=== PATIENT | female | born 1960 | race Caucasian/White ===

== ENCOUNTER 2016-12-31 08:23 | Observation (INO) | payer OTHER ==
[2016-12-31] MEDS ORDERED: NITRO-BID 2% UD PACKETS TOP ONE ×2 (08:31→11:34)
[2016-12-31] MEDS ORDERED: BABY ASPIRIN 81 MG CHEW PO ONE (08:31)
[2016-12-31] MEDS ORDERED: ATARAX 25 MG PO ONE (08:32)
--- NOTE | 2016-12-31 08:39 | ERPHSYRPT ---
- History of Present Illness Time Seen by Provider: 12/31/16 08:25 Historian: patient, family Physician History: CC: chest and left arm pain Hx: 56 y/o patient of Dr Regan with recent episodes of arm heaviness, tightness , and pain associated with malaise and fatigue. She had negative CTA chest yesterday. Today she was having exercise treadmill attended by Dr Pedraza. She complained of some chest pain and then tightness and heaviness in the left arm. She continues to have left arm tightness and heaviness of moderate to severe nature. No hx of heart disease. Was NPO this AM. No abd pain. Not short of breath but did have EKG, cxr, and PFT recently. She was sent from stress test lab to ER for evaluation. Timing/Duration: today Aspirin Treatment Today: 81 mg x 4, provided by ED Allergies/Adverse Reactions: codeine [Codeine] Allergy (Verified 01/06/13 11:12) "feels funny" Home Medications: Synthroid 75 Mcg 75 mcg PO DAILY 01/06/13 [History] Hx Tetanus, Diphtheria Vaccination/Date Given: Yes Hx Influenza Vaccination/Date Given: Yes Hx Pneumococcal Vaccination/Date Given: No - Review of Systems Constitutional: Fatigue, Malaise, No Fever, No Chills Eyes: No Symptoms Ears, Nose, & Throat: No Symptoms Respiratory: No Cough, No Dyspnea Cardiac: Chest Pain, No Edema, No Palpitations, No Syncope Abdominal/Gastrointestinal: No Abdominal Pain, No Nausea, No Vomiting Musculoskeletal: No Back Pain Skin: No Rash Neurological: No Headache All Other Systems: Reviewed and Negative - Past Medical History Pertinent Past Medical History: Yes Neurological History: Migraines ENT History: Cataracts Cardiac History: No Pertinent History Respiratory History: No Pertinent History Endocrine Medical History: Hypothyroidism Musculoskeletal History: No Pertinent History GI Medical History: Gallbladder Disease, Hernia History: No Pertinent History Psycho-Social History: No Pertinent History Female Reproductive Disorders: No Pertinent History - Past Surgical History Past Surgical History: Yes Neuro Surgical History: No Pertinent History Cardiac: No Pertinent History Respiratory: No Pertinent History Gastrointestinal: Cholecystectomy, Hernia Repair Genitourinary: No Pertinent History Musculoskeletal: No Pertinent History Female Surgical History: Section Other Surgical History: left and right cataract removed Lumbar back surgery - Social History Smoking Status: Never smoker Exposure to second hand smoke: No Drug Use: none 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) - Female History Hx Now: No - Physical Exam General Appearance: alert Eye Exam: PERRL/EOMI Ears, Nose, Throat Exam: normal ENT inspection, moist mucous membranes Neck Exam: normal inspection, non-tender, supple Respiratory Exam: normal breath sounds, lungs clear Cardiovascular Exam: regular rate/rhythm, No murmur Gastrointestinal/Abdomen Exam: soft, No tenderness, No distention Extremity Exam: normal inspection, normal range of motion, No calf tenderness, No pedal edema Neurologic Exam: alert, oriented x 3, cooperative, sensation nml, No motor deficits Skin Exam: warm, dry, No rash SpO2 Interpretation: normal SpO2: 97 Oxygen Delivery: Room Air - Course Nursing assessment & vital signs reviewed: Yes EKG Interpreted by Me: RATE (70), Sinus Rhythm, NORMAL AXIS, NORMAL INTERVALS ( QTc 416'), NORMAL QRS, NORMAL ST-T Ordered Tests: Active Orders 24 hr Category Date Time Status Lifeguard STAT Care 12/31/16 08:31 Active EKG-ER Only STAT Care 12/31/16 08:31 Active IV Insertion STAT Care 12/31/16 08:31 Active Pulse Oximetry (ED) STAT Care 12/31/16 08:31 Active CBC W DIFF Stat Lab 12/31/16 08:42 Completed CMP Stat Lab 12/31/16 08:42 Completed LIPID PROFILE Routine Lab 12/31/16 09:00 Received PROTIME WITH INR Stat Lab 12/31/16 08:42 Completed PTT Stat Lab 12/31/16 08:42 Completed TROPONIN Q3H Lab 12/31/16 08:45 Completed TROPONIN Q3H Lab 12/31/16 11:45 Ordered TROPONIN Q3H Lab 12/31/16 14:45 Ordered TROPONIN Q3H Lab 12/31/16 17:45 Ordered TROPONIN Q3H Lab 12/31/16 20:45 Ordered Medication Summary Generic Name Dose Route Start Last Admin Trade Name Freq PRN Reason Stop Dose Admin Sodium Chloride 1,000 mls @ 100 mls/hr 12/31/16 08:45 12/31/16 08:41 Sodium Chloride 0.9% 1000 Ml IV 01/30/17 08:44 100 mls/hr .Q10H SHAMEKA Administration Discontinued Medications Generic Name Dose Route Start Last Admin Trade Name Freq PRN Reason Stop Dose Admin Acetaminophen 650 mg 12/31/16 10:02 12/31/16 10:11 Tylenol 325 Mg PO 12/31/16 10:03 650 mg STAT ONE Administration Acetaminophen Confirm 12/31/16 10:08 Tylenol 325 Mg Administered 12/31/16 10:09 Dose 650 mg .ROUTE .STK-MED ONE Aspirin 324 mg 12/31/16 08:31 12/31/16 08:41 Baby Aspirin 81 Mg Chew PO 12/31/16 08:32 324 mg STAT ONE Administration Aspirin Confirm 12/31/16 08:40 Baby Aspirin 81 Mg Chew Administered 12/31/16 08:41 Dose 324 mg .ROUTE .STK-MED ONE Hydroxyzine HCl 25 mg 12/31/16 08:32 12/31/16 08:42 Atarax 25 Mg PO 12/31/16 08:33 25 mg STAT ONE Administration Hydroxyzine HCl Confirm 12/31/16 08:40 Atarax 25 Mg Administered 12/31/16 08:41 Dose 25 mg .ROUTE .STK-MED ONE Nitroglycerin 1 gm 12/31/16 08:31 12/31/16 08:42 Nitro-Bid 2% Ud Packets TOP 12/31/16 08:32 1 gm STAT ONE Administration Nitroglycerin Confirm 12/31/16 08:40 Nitro-Bid 2% Ud Packets Administered 12/31/16 08:41 Dose 1 gm .ROUTE .STK-MED ONE Ondansetron HCl 4 mg 12/31/16 10:37 12/31/16 10:41 Zofran 4 Mg/2 Ml Vial IV 12/31/16 10:38 4 mg STAT ONE Administration Ondansetron HCl Confirm 12/31/16 10:38 Zofran 4 Mg/2 Ml Vial Administered 12/31/16 10:39 Dose 4 mg .ROUTE .STK-MED ONE Lab/Rad Data: Laboratory Result Diagrams 12/31/16 08:42 12/31/16 08:42 Laboratory Results 12/31/16 12/31/16 12/31/16 Range/Units 08:45 08:42 08:42 WBC (4.0-10.5) K/mm3 RBC (4.1-5.4) M/mm3 Hgb (12.0-16.0) gm/dl Hct (35-47) % MCV (78-100) fl MCH (26-32) pg MCHC (32-36) g/dl RDW (11.5-14.0) % Plt Count (150-450) K/mm3 MPV (6-9.5) fl Gran % (36.0-66.0) % Lymphocytes % (24.0-44.0) % Monocytes % (0.0-12.0) % Eosinophils % (0.00-5.0) % Basophils % (0.0-0.4) % Basophils # (0-0.4) INR 1.00 (0.8-3.0) PTT 31.9 (25.3-37.0) SECONDS Sodium 139 (136-145) mEq/L Potassium 3.4 L (3.5-5.1) mEq/L Chloride 106 (98-107) mEq/L Carbon Dioxide 25.1 (21-32) mEq/L Anion Gap 11.2 (5-15) MEQ/L BUN 19 (9-20) mg/dL Creatinine 0.88 (0.55-1.30) mg/dl Estimated GFR > 60 ML/MIN Glucose 81 (70-110) MG/DL Calcium 8.5 (8.5-10.1) mg/dL Total Bilirubin 0.3 (0.2-1.0) mg/dL AST 16 (15-37) U/L ALT 16 (12-78) U/L Alkaline Phosphatase 93 (46-116) U/L Troponin I < 0.017 (0.000-0.056) ng/ml Serum Total Protein 6.8 (6.4-8.2) gm/dL Albumin 3.3 L (3.4-5.0) g/dL 12/31/16 Range/Units 08:42 WBC 5.3 (4.0-10.5) K/mm3 RBC 4.15 (4.1-5.4) M/mm3 Hgb 12.3 (12.0-16.0) gm/dl Hct 39.8 (35-47) % MCV 95.9 (78-100) fl MCH 29.6 (26-32) pg MCHC 30.9 L (32-36) g/dl RDW 14.1 H (11.5-14.0) % Plt Count 281 (150-450) K/mm3 MPV 9.6 H (6-9.5) fl Gran % 49.6 (36.0-66.0) % Lymphocytes % 40.6 (24.0-44.0) % Monocytes % 8.1 (0.0-12.0) % Eosinophils % 1.1 (0.00-5.0) % Basophils % 0.6 (0.0-0.4) % Basophils # 0.03 (0-0.4) INR (0.8-3.0) PTT (25.3-37.0) SECONDS Sodium (136-145) mEq/L Potassium (3.5-5.1) mEq/L Chloride (98-107) mEq/L Carbon Dioxide (21-32) mEq/L Anion Gap (5-15) MEQ/L BUN (9-20) mg/dL Creatinine (0.55-1.30) mg/dl Estimated GFR ML/MIN Glucose (70-110) MG/DL Calcium (8.5-10.1) mg/dL Total Bilirubin (0.2-1.0) mg/dL AST (15-37) U/L ALT (12-78) U/L Alkaline Phosphatase (46-116) U/L Troponin I (0.000-0.056) ng/ml Serum Total Protein (6.4-8.2) gm/dL Albumin (3.4-5.0) g/dL - Progress Progress Note: 12/31/16 10:15 Chest and arm pain improved after NTG paste. She completed nuclear imaging. Discussed with Dr Lemon who advised normal EF 66%, no sign of reversible ischemia. Spoke to Dr Pedraza who advised consult [facility] cardiology. 12/31/16 11:[address] Arredondo who advised can have rule out, asa, lipids, NTG Rx and office follow up. Spoke to Dr Regan who will place in tele observation for serial troponins. Discussed with : Jass Will see patient in: hospital (observation) Counseled pt/family regarding: lab results, diagnosis, need for follow-up, rad results - Departure Time of Disposition: 11:21 Departure Disposition: Observation Clinical Impression: Chest pain, rule out acute myocardial infarction Condition: Fair Critical Care Time: No Referrals: MARTY REGAN MD [Primary Care Provider] -
[2016-12-31] MEDS ORDERED: BABY ASPIRIN 81 MG CHEW ONE (08:40)
[2016-12-31] MEDS ORDERED: ATARAX 25 MG ONE (08:40)
[2016-12-31] MEDS ORDERED: NITRO-BID 2% UD PACKETS ONE ×2 (08:40→11:26)
[2016-12-31] MEDS: Sodium Chloride 0.9% 1000 ML 1,000 ML IV SCH ×3 (08:41→22:16)
[2016-12-31 08:46] LABS: BASOPHIL % 0.6 % (0.0-0.4); Eosinophil % 1.1 % (0.00-5.0); Granulocytes % 49.6 % (36.0-66.0); Lymphocytes % 40.6 % (24.0-44.0); Mean Cell Volume 95.9 fl (78-100); Mean Corpuscular Hemoglobin 29.6 pg (26-32); Mean Platelet Volume 9.6 fl (6-9.5); Monocytes % 8.1 % (0.0-12.0); Platelet Count 281 K/mm3 (150-450); Red Blood Count 4.15 M/mm3 (4.1-5.4); Red Cell Distribution Width 14.1 % (11.5-14.0); White Blood Count 5.3 K/mm3 (4.0-10.5)
[2016-12-31 08:57] LABS: PROTIME 11.2 SECONDS (9.95-12.35)
[2016-12-31 08:59] LABS: PTT 31.9 SECONDS (25.3-37.0)
[2016-12-31 09:06] LABS: ALBUMIN 3.3 g/dL (3.4-5.0); ALKALINE PHOSPHATASE 93 U/L (46-116); ANION GAP 11.2 MEQ/L (5-15); BILIRUBIN,TOTAL 0.3 mg/dL (0.2-1.0); BLOOD UREA NITROGEN 19 mg/dL (9-20); CHLORIDE 106 mEq/L (98-107); Carbon Dioxide 25.1 mEq/L (21-32); Glucose 81 MG/DL (70-110); Potassium 3.4 mEq/L (3.5-5.1); SGOT/AST 16 U/L (15-37); SGPT/ALT 16 U/L (12-78); SODIUM 139 mEq/L (136-145); Total Protein 6.8 gm/dL (6.4-8.2)
[2016-12-31] MEDS ORDERED: TYLENOL 325 MG PO ONE (10:02)
[2016-12-31] MEDS ORDERED: TYLENOL 325 MG ONE (10:08)
[2016-12-31] MEDS ORDERED: Zofran 4 MG/2 ML VIAL IV ONE (10:37)
[2016-12-31] MEDS ORDERED: Zofran 4 MG/2 ML VIAL ONE (10:38)
[2016-12-31] MEDS ORDERED: MILK OF MAGNESIA 30 ML PO PRN (12:03)
[2016-12-31] MEDS ORDERED: Senokot-S Tablet PO PRN (12:03)
[2016-12-31] MEDS ORDERED: MAALOX ES 30 ML UNIT DOSE PO PRN (12:03)
[2016-12-31] MEDS ORDERED: TYLENOL 325 MG PO PRN (12:03)
--- NOTE | 2016-12-31 12:57 | PCM.HP ---
History of Present Illness - Chief Complaint Chief Complaint: Chest Pain r/o AK History of Present Illness: is a 56 year old female who has been being worked up for exertional dyspnea. She has had symptoms for the last month with extreme dyspnea with exertion, this is a new complaint. She has had a negative CTA chest and normal PFT. this morning she had a treadmill cardiolyte stress test and developed pain in the left arm, heaviness and tightness in her chest so was brought to ER. nuclear imaging was read as negative, there was concern for some possible EKG changes during testing. she has no chest pain at this time, has nitro paste that has resolved the pain but causing headache. - Review of Systems Constitutional: No Fever, No Chills Respiratory: No Cough, No Short Of Breath Cardiac: Chest Pain Abdominal/Gastrointestinal: No Abdominal Pain, No Nausea, No Vomiting, No Diarrhea Skin: No Rash Medications & Allergies Home Medications: Home Medication List Calcium Carbonate [Calcium] 600 mg PO DAILY 12/31/16 [History Confirmed 12/31/16 ] Escitalopram Oxalate [Lexapro] 20 mg PO DAILY 12/31/16 [History Confirmed ] Levothyroxine Sodium 75 Mcg [Synthroid 75 Mcg] 75 mcg PO DAILY 12/31/16 [ History Confirmed 12/31/16] Allergies/Adverse Reactions: Allergies Allergy/AdvReac Type Severity Reaction Status Date / Time codeine [Codeine] Allergy "feels Verified 01/06/13 11:12 funny" - Past Medical History Past Medical History: Yes Neurological History: Migraines ENT History: Cataracts Cardiac History: No Pertinent History Respiratory History: No Pertinent History Endocrine Medical History: Hypothyroidism Musculoskelatal History: No Pertinent History GI Medical History: Gallbladder Disease, Hernia History: No Pertinent History Pyscho-Social History: No Pertinent History Reproductive Disorders: No Pertinent History - Female History Are you now?: No - Past Surgical History Past Surgical History: Yes Neuro Surgical History: No Pertinent History Cardiac History: No Pertinent History Respiratory Surgery: No Pertinent History GI Surgical History: Cholecystectomy, Hernia Repair Genitourinary Surgical Hx: No Pertinent History Musculskeletal Surgical Hx: No Pertinent History Female Surgical History: Section Other Surgical History: left and right cataract removed Lumbar back surgery - Social History Smoking Status: Never smoker Exposure to second hand smoke: No Alcohol: None Drug Use: none - Physical Exam Vital Signs: Vital Signs - 24 hr Temp Pulse Resp BP Pulse Ox 12/31/16 12:16 97.5 F 66 17 107/65 97 12/31/16 11:36 71 16 112/70 97 12/31/16 11:21 97 12/31/16 10:42 88 22 147/78 97 12/31/16 09:42 71 16 108/73 98 12/31/16 08:50 74 16 127/74 95 12/31/16 08:36 97 12/31/16 08:25 97.5 F 81 16 119/61 97 General Appearance: no apparent distress, alert Neurologic Exam: alert, oriented x 3, cooperative, normal mood/affect, nml cerebellar function, nml station & gait, sensation nml, No motor deficits Eye Exam: PERRL/EOMI, eyes nml inspection Respiratory Exam: normal breath sounds, lungs clear, No respiratory distress Cardiovascular Exam: regular rate/rhythm, normal heart sounds, normal peripheral pulses Gastrointestinal/Abdomen Exam: soft, normal bowel sounds, No tenderness, No mass Extremity Exam: normal inspection, normal range of motion, pelvis stable Skin Exam: normal color, warm, dry, No rash Assessment/Plan (1) Chest pain, rule out acute myocardial infarction Current Visit: Yes Status: Acute Assessment & Plan: will continue to r/o AK, treat pain and headache with prn fentanyl. will remove nitro paste when 12 hour troponin done if negative. will need cardiology referral after release, recommend Dr Cardona Code(s): R07.9 - CHEST PAIN, UNSPECIFIED
[2016-12-31] MEDS: SYNTHROID 75 MCG PO SCH (13:58)
[2016-12-31] MEDS: NITRO-BID 2% UD PACKETS TOP SCH ×2 (13:58→22:00)
[2016-12-31] MEDS: Lexapro 10 MG PO SCH (13:59)
[2016-12-31] MEDS: SUBLIMAZE 100 MCG/2 ML IV PRN ×2 (13:59→18:16)
[2016-12-31] MEDS: Zofran 4 MG/2 ML VIAL IV PRN ×2 (16:58→21:22)
[2016-12-31] MEDS: Pepcid 20 MG VIAL IV SCH (21:22)
[2016-12-31] MEDS ORDERED: Phenergan 25 MG INJ IV PRN (22:25)
[2017-01-01] MEDS: NITRO-BID 2% UD PACKETS TOP SCH (05:00)
[2017-01-01 05:49] LABS: BASOPHIL % 0.5 % (0.0-0.4); Eosinophil % 1.2 % (0.00-5.0); Granulocytes % 71.5 % (36.0-66.0); Lymphocytes % 18.8 % (24.0-44.0); Mean Cell Volume 97.9 fl (78-100); Mean Corpuscular Hemoglobin 29.7 pg (26-32); Mean Platelet Volume 9.5 fl (6-9.5); Platelet Count 247 K/mm3 (150-450); Red Blood Count 3.87 M/mm3 (4.1-5.4); Red Cell Distribution Width 13.9 % (11.5-14.0); White Blood Count 6.6 K/mm3 (4.0-10.5)
[2017-01-01 06:04] LABS: ANION GAP 9.9 MEQ/L (5-15); BLOOD UREA NITROGEN 7 mg/dL (9-20); CHLORIDE 110 mEq/L (98-107); Carbon Dioxide 25.7 mEq/L (21-32); Glucose 81 MG/DL (70-110); MAGNESIUM 1.9 mg/dL (1.8-2.4); Potassium 3.5 mEq/L (3.5-5.1); SODIUM 142 mEq/L (136-145)
[2017-01-01 06:07] LABS: TROPONIN < 0.017 ng/ml (0.000-0.056)
[2017-01-01] MEDS: Lexapro 10 MG PO SCH (08:27)
[2017-01-01] MEDS: SYNTHROID 75 MCG PO SCH (08:27)
[2017-01-01] MEDS: Sodium Chloride 0.9% 1000 ML 1,000 ML IV SCH (08:27)
[2017-01-01] MEDS: Pepcid 20 MG VIAL IV SCH (08:28)
[2017-01-01] MEDS ORDERED: PNEUMOVAX 23 IM ONE (10:00)
[2017-01-01] MEDS ORDERED: Ecotrin 325 MG PO SCH (10:00)
[2017-01-01] MEDS ORDERED: NON-FORMULARY ITEM (Escitalopram Oxalate [Lexapro] 20 MG) PO SCH (10:00)
[2017-01-01 11:10] VITALS: BP 126/63; PULSE 73; O2SAT 98
--- NOTE | 2017-01-01 11:47 | PCM.DS ---
Discharge Summary Date of Admission: 12/31/16 11:55 Admitting Physician: MARTY REGAN Primary Care Provider: MARTY REGAN Allergies Allergies codeine [Codeine] Allergy (Verified 01/06/13 11:12) "feels funny" Hospital Summary - Hospital Course Hospital Course: Pt admitted through ER with arm pain to r/o KS yesterday. She has 1 mo hx DYER, seeing Dr. Regan, and was scheduled for treadmill cardiolite yesterday. During the test some ST changes were noted and she was markedly SOB. After the test she c/o L arm pain. She is feeling well this morning. Her pain resolved with nitro paste and she denies any pain in the arm now after being off the nitro paste all night. Some small ROA. Robby po. Troponins neg x 5. she will be set up with Dr. Cardona next week; off work until she sees him. - Vitals & Intake/Output Vital Signs: Vital Signs Temperature 97.9 F 01/01/17 11:09 Pulse Rate 73 01/01/17 11:09 Respiratory Rate 18 01/01/17 11:09 Blood Pressure 126/63 01/01/17 11:09 O2 Sat by Pulse Oximetry 98 01/01/17 11:09 Intake & Output: Intake & Output 12/29/16 12/30/16 12/31/16 01/01/17 11:59 11:59 11:59 11:59 Intake Total 2440 Output Total 600 Balance 1840 Weight 72.212 kg - Lab Result Diagrams: 01/01/17 05:30 01/01/17 05:30 Lab Results-Last 24 Hrs: Lab Results-Last 24 Hours 12/31/16 12/31/16 12/31/16 Range/Units 15:00 18:01 21:04 WBC (4.0-10.5) K/mm3 RBC (4.1-5.4) M/mm3 Hgb (12.0-16.0) gm/dl Hct (35-47) % MCV (78-100) fl MCH (26-32) pg MCHC (32-36) g/dl RDW (11.5-14.0) % Plt Count (150-450) K/mm3 MPV (6-9.5) fl Gran % (36.0-66.0) % Lymphocytes % (24.0-44.0) % Monocytes % (0.0-12.0) % Eosinophils % (0.00-5.0) % Basophils % (0.0-0.4) % Basophils # (0-0.4) Sodium (136-145) mEq/L Potassium (3.5-5.1) mEq/L Chloride (98-107) mEq/L Carbon Dioxide (21-32) mEq/L Anion Gap (5-15) MEQ/L BUN (9-20) mg/dL Creatinine (0.55-1.30) mg/dl Estimated GFR ML/MIN Glucose (70-110) MG/DL Calcium (8.5-10.1) mg/dL Magnesium (1.8-2.4) mg/dL Troponin I < 0.017 < 0.017 < 0.017 (0.000-0.056) ng/ml 01/01/17 01/01/17 Range/Units 05:30 05:30 WBC 6.6 (4.0-10.5) K/mm3 RBC 3.87 L (4.1-5.4) M/mm3 Hgb 11.5 L (12.0-16.0) gm/dl Hct 37.9 (35-47) % MCV 97.9 (78-100) fl MCH 29.7 (26-32) pg MCHC 30.3 L (32-36) g/dl RDW 13.9 (11.5-14.0) % Plt Count 247 (150-450) K/mm3 MPV 9.5 (6-9.5) fl Gran % 71.5 H (36.0-66.0) % Lymphocytes % 18.8 L (24.0-44.0) % Monocytes % 8.0 (0.0-12.0) % Eosinophils % 1.2 (0.00-5.0) % Basophils % 0.5 (0.0-0.4) % Basophils # 0.03 (0-0.4) Sodium 142 (136-145) mEq/L Potassium 3.5 (3.5-5.1) mEq/L Chloride 110 H (98-107) mEq/L Carbon Dioxide 25.7 (21-32) mEq/L Anion Gap 9.9 (5-15) MEQ/L BUN 7 L (9-20) mg/dL Creatinine 0.68 (0.55-1.30) mg/dl Estimated GFR > 60 ML/MIN Glucose 81 (70-110) MG/DL Calcium 7.6 L (8.5-10.1) mg/dL Magnesium 1.9 (1.8-2.4) mg/dL Troponin I < 0.017 (0.000-0.056) ng/ml - Procedures and Test Procedures and Tests throughout Hospitalization: Therapy Orders & Screens 12/31/16 19:31 EKG ONCE Comment: Diagnosis: Chest Pain r/o KS 01/01/17 05:00 EKG ONCE Comment: Diagnosis: Chest Pain r/o KS 01/02/17 05:00 EKG ONCE Comment: Diagnosis: Chest Pain r/o KS 01/03/17 05:00 EKG ONCE Comment: Diagnosis: Chest Pain r/o KS Discharge Exam General Appearance: no apparent distress Neurologic Exam: alert, oriented x 3, cooperative Skin Exam: normal color, warm, dry Eye Exam: eyes nml inspection Respiratory Exam: normal breath sounds, lungs clear, No rhonchi, No wheezing, No stridor Cardiovascular Exam: regular rate/rhythm, normal heart sounds, No murmur Extremity Exam: normal inspection, No pedal edema, No swelling Back Exam: normal inspection Final Diagnosis/Problem List - Final Discharge Diagnosis/Problem (1) Chest pain, rule out acute myocardial infarction Current Visit: Yes Status: Acute Assessment & Plan: KS ruled out. However, concern is for unstable angina. Discussed with pt any chest pain, discomfort, pressure, arm pain, neck pain etc and she is to go immediately to the ER. Follow up with Dr. Cardona next week; I will call him tuesday. Off work until sees cardiology. (2) DYER (dyspnea on exertion) Current Visit: Yes Status: Acute Assessment & Plan: CTA and PFT neg outpatient. - Discharge Disposition: Home, Self-Care Condition: Good Prescriptions: Continue Escitalopram Oxalate [Lexapro] 20 mg PO DAILY Levothyroxine Sodium 75 Mcg [Synthroid 75 Mcg] 75 mcg PO DAILY Calcium Carbonate [Calcium] 600 mg PO DAILY Follow up with: MARTY REGAN MD [Primary Care Provider] -
== END 2017-01-01 13:20 | disposition home or self-care (01) ==
LOC: ED 08:23 → MED SURG 11:55
PROVIDERS: ADMIT Family Medicine; ATTEND Family Medicine
DX: R07.89 Other chest pain (principal); R06.09 Other forms of dyspnea; Z79.899 Other long term (current) drug therapy
CPT/HCPCS: 36415; 80048; 80053; 80061; 83721; 83735; 84484; 85025; 85610; 85730; 90732; 93005; 93041; 93268; 96360; 96361; 96374; 96375; 99285; G0378; J2405; J2550; J3010; A9270-GY

== ENCOUNTER 2017-12-22 07:16 | Day surgery (SDC) | payer OTHER ==
[~2017-12-22 07:16] MED LIST: Lactated Ringers 1,000 ML IV ONE; XYLOCAINE 1% HCL 20 ML MDV ONE
[2017-12-22] MEDS ORDERED: DEMEROL 50 MG SDV IV ONE (07:17)
[2017-12-22] MEDS ORDERED: VERSED 5 MG/5 ML IV ONE (07:17)
[2017-12-22] MEDS ORDERED: Lactated Ringers 1,000 ML IV SCH (08:00)
[2017-12-22] MEDS ORDERED: Lactated Ringers 0 ML IV ONE (08:01)
--- NOTE | 2017-12-22 08:34 | OP ---
SURGERY DATE/TIME: 12/22/2017929 PREOPERATIVE DIAGNOSIS: Three lesions on the back. POSTOPERATIVE DIAGNOSIS: Three lesions on the back. PROCEDURE: Excision of 1.5 cm sebaceous cyst with closure superior. Middle 1 cm sebaceous cyst with closure. Bottom 0.5 cm capillary hemangioma excision and closure. SURGEON: Santana Andrade M.D. ANESTHESIA: Local IV sedation, 15 minutes monitored. COMPLICATIONS: None. CONDITION: Stable. INDICATION: A patient requiring these areas to be removed. DESCRIPTION OF PROCEDURE: She was taken to surgery. Left lateral decubitus position. IV sedation titrated. Oximetry kept over 90%. Satisfaction level was excellent. 1% lidocaine infiltrated. Elliptical excision of three areas 1.5 cm, 1 cm and 0.5 cm. They were all closed with 4-0 Prolene. Sterile ointment applied. Sterile dressing applied. The patient tolerated the procedure satisfactory.
--- NOTE | 2017-12-22 08:36 | HP ---
DATE OF SURGERY: 12/22/2017 ADMISSION DIAGNOSIS: Two skin lesions on the back. ANTICIPATED PROCEDURE: Excision. PAST MEDICAL HISTORY: ALLERGIES: CODEINE. MEDICATIONS: Synthroid, Lexapro. PAST SURGICAL HISTORY: section, thyroid radiation, gallbladder. SOCIAL HISTORY: Negative. FAMILY HISTORY: Negative. PHYSICAL EXAMINATION: VITAL SIGNS: Normal. CHEST: Clear. COR: Regular. IMPRESSION: Two lesions on the back. PLAN: Excision.
[2017-12-22 11:50] VITALS: BP 109/66; PULSE 77; O2SAT 97
== END 2017-12-22 11:55 | disposition home or self-care (01) ==
LOC: SDC 07:16
PROVIDERS: ATTEND Surgery
PROC: 0HB6XZZ Excision of Back Skin, External Approach (ICD-10-PCS; principal; 2017-12-22)
PROC: 0HB6XZZ Excision of Back Skin, External Approach (ICD-10-PCS; 2017-12-22)
DX: L72.3 Sebaceous cyst (principal); D18.01 Hemangioma of skin and subcutaneous tissue
CPT/HCPCS: 94250; J2175; J2250

== ENCOUNTER 2018-07-12 09:16 | Emergency (ER) | payer OTHER ==
[2018-07-12] MEDS ORDERED: Marcaine 0.5% SDV 10 ML ONE (09:21)
[2018-07-12] MEDS ORDERED: Marcaine 0.5% SDV 10 ML IJ ONE (09:23)
[2018-07-12] MEDS ORDERED: BACIGUENT PACKET TP ONE (09:23)
[2018-07-12 09:27] VITALS: O2SAT 98
[2018-07-12] MEDS ORDERED: BACIGUENT PACKET ONE (09:30)
--- NOTE | 2018-07-12 09:30 | ERPHSYRPT ---
- History of Present Illness Time Seen by Provider: 07/12/18 09:22 Source: patient Exam Limitations: no limitations Physician History: patient accidently lacerated her right index finger at work today on a food can lid; no numbness; no weakness; no loss of strength; slight bleeding; local discomfort only; no prior hx; no other complaints; right handed; otherwise healthy Occurred: just prior to arrival, this morning Method of Injury: incised Quality: sharpness Severity of Pain-Max: mild Severity of Pain-Current: none Extremities Pain Location: 2nd finger: right Modifying Factors: Improves With: nothing Associated Symptoms: none Allergies/Adverse Reactions: codeine [Codeine] Allergy (Verified 07/12/18 09:27) "feels funny" Home Medications: Calcium Carbonate [Calcium] 600 mg PO DAILY 12/31/16 [History] Escitalopram Oxalate [Lexapro] 20 mg PO DAILY 12/31/16 [History] Levothyroxine Sodium 75 Mcg [Synthroid 75 Mcg] 75 mcg PO DAILY 12/31/16 [ History] Aspirin/Acetaminophen/Caffeine [Excedrin Migraine Caplet] 1 each PO DAILY [History] Hx Tetanus, Diphtheria Vaccination/Date Given: Yes Hx Influenza Vaccination/Date Given: Yes Hx Pneumococcal Vaccination/Date Given: No - Review of Systems Constitutional: No Symptoms Eyes: No Symptoms Ears, Nose, & Throat: No Symptoms Respiratory: No Cough, No Dyspnea, No Wheezing Cardiac: No Chest Pain, No Palpitations, No Syncope Abdominal/Gastrointestinal: No Abdominal Pain, No Nausea, No Vomiting, No Diarrhea Genitourinary Symptoms: No Symptoms Musculoskeletal: Injury (right ndex finger lac), No Back Pain, No Fall, No Joint Pain Skin: Other (laceration right index finger) Neurological: No Symptoms Psychological: No Symptoms - Past Medical History Pertinent Past Medical History: Yes Neurological History: Migraines ENT History: Cataracts Cardiac History: No Pertinent History Respiratory History: Sleep Apnea Endocrine Medical History: Hypothyroidism Musculoskeletal History: No Pertinent History GI Medical History: Gallbladder Disease, Hernia History: No Pertinent History Psycho-Social History: Depression Female Reproductive Disorders: No Pertinent History Other Medical History: thyroid radiation - Past Surgical History Past Surgical History: Yes Neuro Surgical History: No Pertinent History Cardiac: No Pertinent History Respiratory: No Pertinent History Gastrointestinal: Cholecystectomy, Hernia Repair Genitourinary: No Pertinent History Musculoskeletal: No Pertinent History Female Surgical History: Section Other Surgical History: left and right cataract removed. Lumbar back surgery. 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) Significant Family History: no pertinent family hx - Female History Hx Now: No - Nursing Vital Signs Nursing Vital Signs: Initial Vital Signs Temperature 97.7 F 07/12/18 09:20 Pulse Rate 78 07/12/18 09:20 Respiratory Rate 20 07/12/18 09:20 Blood Pressure 155/99 07/12/18 09:20 O2 Sat by Pulse Oximetry 98 07/12/18 09:20 Pain Scale Pain Intensity 0 - Physical Exam General Appearance: mild distress, alert, anxiety, other Eyes, Ears, Nose, Throat Exam: normal ENT inspection, pharynx normal, moist mucous membranes Neck Exam: normal inspection, non-tender, supple Cardiovascular/Respiratory Exam: chest non-tender, normal breath sounds, regular rate/rhythm, no JVD, no M/R/G Abdominal Exam: non-tender, soft, no organomegaly Shoulder Exam: normal inspection, non-tender, no evidence of injury, normal ROM Elbow/Forearm Exam: normal inspection, non-tender, no evidence of injury, normal ROM Wrist Exam: normal inspection, non-tender, no evidence of injury, normal ROM Hand Exam: non-tender, normal ROM, laceration (1 cm dorsum right index finger; proximal phalanx; slight bleeding; Good ROM and strength; good two point discrimination), soft tissue tenderness, No bone tenderness, No ecchymosis, No infection, No nail injury Neuro/Tendon Exam: normal sensation, normal motor functions, normal tendon functions, responds to pain, no evidence tendon injury Mental Status Exam: alert, oriented x 3, cooperative, other (anxious) Skin Exam: normal color, warm, dry, laceration (dorsum proximal right index finger- 1 cm), No rash, No petechiae Procedures - Laceration/Wound Repair Right Proximal Dorsal Finger Wound Location: Right, hand Wound Length (cm): 1.0 (index finger) Wound's Depth, Shape: superficial, linear, into subcut Wound Explored: clean Irrigated: Yes Hibiclens Prep: Yes Anesthesia: local, marcaine 0.5 Volume Anesthetic (ccs): 3 Wound Repaired With: sutures Suture Size/Type: 5-0 Number of Sutures: 3 Layer Closure?: No Sterile Dressing Applied?: Yes Splint Applied?: No Sling Applied?: No - Course Nursing assessment & vital signs reviewed: Yes Ordered Tests: Active Orders 24 hr Category Date Time Status Prepare for Sutures STAT Care 07/12/18 09:23 Active Re-Check Vital Signs STAT Care 07/12/18 09:23 Active Sutures STAT Care 07/12/18 09:23 Active Wound Care STAT Care 07/12/18 09:23 Active Medication Summary Discontinued Medications Generic Name Dose Route Start Last Admin Trade Name Cira PRN Reason Stop Dose Admin Bacitracin Zinc 0.9 gm 07/12/18 09:23 07/12/18 09:31 Baciguent Packet TP 07/12/18 09:24 1 gm STAT ONE Administration Bacitracin Zinc Confirm 07/12/18 09:30 Baciguent Packet Administered 07/12/18 09:31 Dose 1 gm .ROUTE .STK-MED ONE Bupivacaine HCl Confirm 07/12/18 09:21 Marcaine 0.5% Sdv 10 Ml Administered 07/12/18 09:22 Dose 10 ml .ROUTE .STK-MED ONE Bupivacaine HCl 5 ml 07/12/18 09:23 Marcaine 0.5% Sdv 10 Ml IJ 07/12/18 09:24 STAT ONE Diphtheria/Tetanus/Acell Pertussis Confirm 07/12/18 09:34 Adacel Vial Administered 07/12/18 09:35 Dose 0.5 ml IM .STK-MED ONE - Progress Progress: improved Progress Note: 07/12/18 09:45 patient tolerated well; instructions given Counseled pt/family regarding: diagnosis, need for follow-up - Departure Time of Disposition: 09:45 Departure Disposition: Home Clinical Impression: 1.0 cm laceration dorsal proximal , right index finger Condition: Stable Critical Care Time: No Referrals: MARTY HERNANDES MD [Primary Care Provider] - Instructions: Wound Care (DC), Laceration Repair With Stitches (DC) Additional Instructions: suture removal in 10 days;Keep clean and dry; bacitracin daily; Tylenol when necessary; Follow-up with family doctor as directed. Call for appointment. Return if any problems. If you smoke please stop. Call or follow up with your family doctor for assistance if you need it to stop. Please wear your seatbelt when driving. Have a nice day. Thank you for allowing us to participate in your care today. :o) Dr Alfredo Mast
[2018-07-12] MEDS ORDERED: Adacel Vial IM ONE (09:34)
[2018-07-12 10:04] VITALS: BP 141/88; PULSE 79
== END 2018-07-12 10:04 | disposition home or self-care (01) ==
LOC: ED 09:16
PROC: 0HQFXZZ Repair Right Hand Skin, External Approach (ICD-10-PCS; principal; 2018-07-12)
DX: S61.210A Laceration without foreign body of right index finger without damage to nail, initial encounter (principal); W26.8XXA Contact with other sharp object(s), not elsewhere classified, initial encounter; Y93.G3 Activity, cooking and baking; Y92.238 Other place in hospital as the place of occurrence of the external cause; Y99.0 Civilian activity done for income or pay
CPT/HCPCS: 12001; 90471; 90715; 99284; A9270-GY

== ENCOUNTER 2019-10-21 19:28 | Emergency (ER) | payer OTHER ==
[2019-10-21] MEDS ORDERED: Imitrex 6 MG/0.5 ML SQ STA (19:50)
[2019-10-21] MEDS ORDERED: Sodium Chloride 0.9% 1000 ML 1,000 ML IV STA (19:52)
[2019-10-21] MEDS ORDERED: Compazine 10 MG/2 ML IV ONE (19:52)
[2019-10-21] MEDS ORDERED: Imitrex 6 MG/0.5 ML SQ ONE (19:56)
[2019-10-21] MEDS ORDERED: Sodium Chloride 0.9% 1000 ML 1,000 ML ONE (19:56)
[2019-10-21] MEDS ORDERED: Compazine 10 MG/2 ML ONE (19:56)
--- NOTE | 2019-10-21 20:04 | ERPHSYRPT ---
- History of Present Illness Time Seen by Provider: 10/21/19 19:31 Source: patient, family Exam Limitations: no limitations Patient Subjective Stated Complaint: pt states she woke up with a headache and it has gotten worse thru the day. states she has migraines and ran out of her medication. states this is the norm for her migraines. Triage Nursing Assessment: pt awake and alert, answers questions approp. pt back per wheelchair. transfers to stretcher with assist of 1. pt vomiting bile. pupils equal and reacitve. no facila droop noted. bilat upper and lower ext strength equal. Physician History: Pt with hx of migraines. started this am. progressively worse. vomiting since 5pm. Same as her usual migraines. Ran out of migraines meds. Had similar event in 2012 and came to ER for care. Pos photophobia, phonophobia. Timing/Duration: today Quality: pressure, sharpness Head Pain Location: parietal Severity of Pain-Max: mild Severity of Pain-Current: severe Recent Head Trauma: no recent headache/trauma, chronic headaches Allergies/Adverse Reactions: codeine [Codeine] Allergy (Verified 10/21/19 19:48) "feels funny" Home Medications: Calcium Carbonate [Calcium] 600 mg PO DAILY 12/31/16 [History] Escitalopram Oxalate [Lexapro] 20 mg PO DAILY 12/31/16 [History] Levothyroxine Sodium 75 Mcg [Synthroid 75 Mcg] 75 mcg PO DAILY 12/31/16 [ History] Aspirin/Acetaminophen/Caffeine [Excedrin Migraine Caplet] 1 each PO DAILY [History] Hx Tetanus, Diphtheria Vaccination/Date Given: Yes Hx Influenza Vaccination/Date Given: Yes Hx Pneumococcal Vaccination/Date Given: No Immunizations Up to Date: Yes - Review of Systems Constitutional: Malaise, No Fever, No Chills Eyes: No Symptoms Ears, Nose, & Throat: No Symptoms Respiratory: No Cough, No Dyspnea Cardiac: No Chest Pain, No Edema, No Syncope Abdominal/Gastrointestinal: Abdominal Pain, Nausea, Vomiting, No Diarrhea Genitourinary Symptoms: No Dysuria Musculoskeletal: No Back Pain, No Neck Pain Skin: No Rash Neurological: Headache, No Dizziness, No Focal Weakness, No Sensory Changes Psychological: No Symptoms Endocrine: No Symptoms All Other Systems: Reviewed and Negative - Past Medical History Pertinent Past Medical History: Yes Neurological History: Migraines ENT History: Cataracts Cardiac History: No Pertinent History Respiratory History: Sleep Apnea Endocrine Medical History: Hypothyroidism Musculoskeletal History: No Pertinent History GI Medical History: Gallbladder Disease, Hernia History: No Pertinent History Psycho-Social History: Depression Female Reproductive Disorders: No Pertinent History Other Medical History: thyroid radiation - Past Surgical History Past Surgical History: Yes Neuro Surgical History: No Pertinent History Cardiac: No Pertinent History Respiratory: No Pertinent History Gastrointestinal: Cholecystectomy, Hernia Repair Genitourinary: No Pertinent History Musculoskeletal: No Pertinent History Female Surgical History: Section Other Surgical History: left and right cataract removed. Lumbar back surgery. - Social History Smoking Status: Never smoker Exposure to second hand smoke: No Alcohol Use: None Drug Use: none Patient Lives Alone: No Significant Family History: no pertinent family hx - Nursing Vital Signs Nursing Vital Signs: Initial Vital Signs Temperature 97.5 F 10/21/19 19:34 Pulse Rate 80 10/21/19 19:34 Respiratory Rate 20 10/21/19 19:34 Blood Pressure 160/83 10/21/19 19:34 O2 Sat by Pulse Oximetry 98 10/21/19 19:34 Pain Scale Pain Intensity 0 - Physical Exam General Appearance: moderate distress Eye Exam: PERRL/EOMI Ears, Nose, Throat Exam: normal ENT inspection, moist mucous membranes Neck Exam: normal inspection, supple, full range of motion, No meningismus Respiratory Exam: normal breath sounds, lungs clear Cardiovascular Exam: regular rate/rhythm, normal heart sounds Gastrointestinal/Abdominal Exam: soft, tenderness (epigastric), No distention, No guarding, No rebound Back Exam: normal inspection, normal range of motion Mental Status Exam: alert, oriented x 3, 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 hearing, normal speech, PERRL, No facial droop, No facial weakness Coordination/Gait Exam: normal cerebellar function Motor/Sensory Exam: no motor deficit, no sensory deficit Skin Exam: normal color, warm, dry, No rash SpO2: 98 - Course Nursing assessment & vital signs reviewed: Yes - CT Exams Head CT Interpretation: Negative, Tele-radiologist Report Ordered Tests: Active Orders 24 hr Category Date Time Status IV Insertion STAT Care 10/21/19 19:43 Active HEAD WITHOUT CONTRAST [CT] Stat Exams 10/21/19 19:54 Taken CBC W DIFF Stat Lab 10/21/19 21:29 Completed CMP Stat Lab 10/21/19 21:29 Completed Medication Summary Generic Name Dose Route Start Last Admin Trade Name Cira PRN Reason Stop Dose Admin Sodium Chloride 1,000 mls @ 200 mls/hr 10/21/19 19:52 10/21/19 20:00 Sodium Chloride 0.9% 1000 Ml IV 10/22/19 00:51 200 mls/hr .Q5H STA Administration Discontinued Medications Generic Name Dose Route Start Last Admin Trade Name Cira PRN Reason Stop Dose Admin Sodium Chloride Confirm 10/21/19 19:56 Sodium Chloride 0.9% 1000 Ml Administered 10/21/19 19:57 Dose 1,000 mls @ ud .ROUTE .STK-MED ONE Prochlorperazine Edisylate 10 mg 10/21/19 19:52 10/21/19 20:00 Compazine 10 Mg/2 Ml IV 10/21/19 19:53 10 mg STAT ONE Administration Prochlorperazine Edisylate Confirm 10/21/19 19:56 Compazine 10 Mg/2 Ml Administered 10/21/19 19:57 Dose 10 mg .ROUTE .STK-MED ONE Sumatriptan Succinate 6 mg 10/21/19 19:50 10/21/19 20:00 Imitrex 6 Mg/0.5 Ml SQ 10/21/19 19:51 6 mg STAT STA Administration Sumatriptan Succinate Confirm 10/21/19 19:56 Imitrex 6 Mg/0.5 Ml Administered 10/21/19 19:57 Dose 6 mg SQ .STK-MED ONE Lab/Rad Data: Laboratory Result Diagrams 10/21/19 21:29 10/21/19 21:29 Laboratory Results 10/21/19 10/21/19 Range/Units 21:29 21:29 WBC 11.6 H (4.0-10.5) K/mm3 RBC 4.41 (4.1-5.4) M/mm3 Hgb 13.3 (12.0-16.0) gm/dl Hct 43.3 (35-47) % MCV 98.2 (78-100) fl MCH 30.2 (26-32) pg MCHC 30.7 L (32-36) g/dl RDW 14.5 H (11.5-14.0) % Plt Count 303 (150-450) K/mm3 MPV 10.5 (7.5-11.0) fl Gran % 77.7 H (36.0-66.0) % Eos # (Auto) 0.15 (0-0.5) Absolute Lymphs (auto) 1.79 (1.0-4.6) Absolute Monos (auto) 0.60 (0.0-1.3) Lymphocytes % 15.5 L (24.0-44.0) % Monocytes % 5.2 (0.0-12.0) % Eosinophils % 1.3 (0.00-5.0) % Basophils % 0.3 (0.0-0.4) % Absolute Granulocytes 9.00 H (1.4-6.9) Basophils # 0.03 (0-0.4) Sodium 142 (137-145) mmol/L Potassium 3.7 (3.5-5.1) mmol/L Chloride 103 (98-107) mmol/L Carbon Dioxide 28 (22-30) mmol/L Anion Gap 14.2 (5-15) MEQ/L BUN 19 H (7-17) mg/dL Creatinine 0.68 (0.52-1.04) mg/dL Estimated GFR > 60.0 ML/MIN Glucose 129 H (74-106) mg/dL Calcium 8.9 (8.4-10.2) mg/dL Total Bilirubin 0.40 (0.2-1.3) mg/dL AST 33 (14-36) U/L ALT 28 (0-35) U/L Alkaline Phosphatase 110 (38-126) U/L Serum Total Protein 7.8 (6.3-8.2) g/dL Albumin 4.4 (3.5-5.0) g/dL - Progress Progress: improved Air Movement: good Progress Note: 10/21/19 21:52 Sx resolved with imitrex and compazine. Will DC home. Work up neg. Blood Culture(s) Obtained: No Antibiotics given: No Counseled pt/family regarding: lab results, diagnosis, rad results - Departure Departure Disposition: Home Clinical Impression: Migraine Condition: Stable Critical Care Time: No Referrals: MARTY HERNANDES MD [Primary Care Provider] - Additional Instructions: Monitor closely. Hydration. Meds as prescribed. Follow up with PCP for recheck. Return to ER if worse. Prescriptions: Sumatriptan Succinate 25 mg [Imitrex 25 MG] 50 mg PO Q2H/PRN PRN 10 Days #10 tab PRN Reason: Headache
[2019-10-21 20:51] VITALS: PULSE 76
[2019-10-21 21:33] LABS: BASOPHIL % 0.3 % (0.0-0.4); Basophil (Absolute #) 0.03 (0-0.4); Eosinophil % 1.3 % (0.00-5.0); Eosinophil (Absolute #) 0.15 (0-0.5); Hematocrit 43.3 % (35-47); Hemoglobin 13.3 gm/dl (12.0-16.0); Lymphocyte (Absolute #) 1.79 (1.0-4.6); Lymphocytes % 15.5 % (24.0-44.0); Mean Cell Volume 98.2 fl (78-100); Mean Corpuscular Hemoglobin 30.2 pg (26-32); Mean Corpuscular Hgb Concent. 30.7 g/dl (32-36); Mean Platelet Volume 10.5 fl (7.5-11.0); Monocytes % 5.2 % (0.0-12.0); Neutrophil % 77.7 % (36.0-66.0); Platelet Count 303 K/mm3 (150-450); Red Blood Count 4.41 M/mm3 (4.1-5.4); Red Cell Distribution Width 14.5 % (11.5-14.0); White Blood Count 11.6 K/mm3 (4.0-10.5)
[2019-10-21 21:43] LABS: ALBUMIN 4.4 g/dL (3.5-5.0); ALKALINE PHOSPHATASE 110 U/L (38-126); ANION GAP 14.2 MEQ/L (5-15); BLOOD UREA NITROGEN 19 mg/dL (7-17); CHLORIDE 103 mmol/L (98-107); Calcium 8.9 mg/dL (8.4-10.2); Carbon Dioxide 28 mmol/L (22-30); Creatinine 1 0.68 mg/dL (0.52-1.04); Glucose 129 mg/dL (74-106); Potassium 3.7 mmol/L (3.5-5.1); SGOT/AST 33 U/L (14-36); SGPT/ALT 28 U/L (0-35); SODIUM 142 mmol/L (137-145); Total Protein 7.8 g/dL (6.3-8.2)
[2019-10-21 22:04] VITALS: BP 141/81; O2SAT 95
--- NOTE | 2019-10-22 08:41 | XRAY ---
Indication: Headache. History migraines Multiple contiguous axial images obtained through the head without contrast. Comparison: January 06, 2013. Again normal appearing brain parenchyma, ventricles, and bony calvarium. Visualized paranasal sinuses and mastoid air cells are clear. Impression: Normal CT head without contrast exam. Comment: Preliminary interpretation was made by [facility]. No critical discrepancy.
== END 2019-10-21 22:10 | disposition home or self-care (01) ==
LOC: ED 19:28
DX: G43.909 Migraine, unspecified, not intractable, without status migrainosus (principal)
CPT/HCPCS: 36000; 36415; 70450; 80053; 85025; 96372; 96374; 99284; J3030

== ENCOUNTER 2022-12-11 15:43 | Emergency (ER) | payer OTHER ==
[2022-12-11] MEDS ORDERED: NORCO 5/325 MG ONE (16:08)
[2022-12-11] MEDS ORDERED: NORCO 5/325 MG PO ONE ×2 (16:23→18:08)
--- NOTE | 2022-12-11 16:58 | ERPHSYRPT ---
- History of Present Illness Time Seen by Provider: 12/11/22 16:05 Source: patient Exam Limitations: no limitations Patient Subjective Stated Complaint: Wrist injury Triage Nursing Assessment: Patient ambulated back to ED and transferred self to bed. Patient A+O X 3. Patient's skin pink, warm and dry. Patient complains of left wrist/hand pain from a fall. Patient states she slipped and went to catch herself landing on her left wrist. Left wrist noted to be swollen and tender. Patient complains of pain /. Physician History: Patient is a 62-year-old white female who slipped and fell landing on her left wrist. This occurred just prior to arrival she complains of pain and swelling in the wrist she has no other pain and no other injury. Occurred: just prior to arrival Reason for Fall: slipped Injuries/Pain Location: upper extremity (Left wrist) Quality: aching, throbbing Severity of Pain-Max: moderate Severity of Pain-Current: moderate Modifying Factors: Improves With: movement Associated Symptoms (Fall): denies symptoms Allergies/Adverse Reactions: codeine [Codeine] Allergy (Verified 10/21/19 19:48) "feels funny" Home Medications: Calcium Carbonate [Calcium] 600 mg PO DAILY 12/31/16 [History] Escitalopram Oxalate [Lexapro] 20 mg PO DAILY 12/31/16 [History] Levothyroxine Sodium 75 Mcg [Synthroid 75 Mcg] 75 mcg PO DAILY 12/31/16 [History] Aspirin/Acetaminophen/Caffeine [Excedrin Migraine Caplet] 1 each PO DAILY 12/14/17 [History] Hx Tetanus, Diphtheria Vaccination/Date Given: Yes Hx Influenza Vaccination/Date Given: Yes Hx Pneumococcal Vaccination/Date Given: No Immunizations Up to Date: Yes Travel Risk - International Travel Have you traveled outside of the country in past 3 weeks: No - Coronavirus Screening Are you exhibiting any of the following symptoms?: No Close contact with a COVID-19 positive Pt in past 14-21 Days: No - Vaccine Status Have you recieved a Covid-19 vaccination: Yes 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[employer] - Review of Systems Constitutional: No Fever, No Chills Eyes: No Symptoms Ears, Nose, & Throat: No Symptoms Respiratory: No Cough, No Dyspnea Cardiac: No Chest Pain, No Edema, No Syncope Abdominal/Gastrointestinal: No Abdominal Pain, No Nausea, No Vomiting, No Diarrhea Genitourinary Symptoms: No Dysuria Musculoskeletal: No Back Pain, No Neck Pain Skin: No Rash Neurological: No Dizziness, No Focal Weakness, No Sensory Changes Psychological: No Symptoms Endocrine: No Symptoms All Other Systems: Reviewed and Negative - Past Medical History Pertinent Past Medical History: Yes Neurological History: Migraines ENT History: Cataracts Cardiac History: No Pertinent History Respiratory History: Sleep Apnea Endocrine Medical History: Hypothyroidism Musculoskeletal History: No Pertinent History GI Medical History: Gallbladder Disease, Hernia History: No Pertinent History Psycho-Social History: Depression Female Reproductive Disorders: No Pertinent History Other Medical History: thyroid radiation - Past Surgical History Past Surgical History: Yes Neuro Surgical History: No Pertinent History Cardiac: No Pertinent History Respiratory: No Pertinent History Gastrointestinal: Cholecystectomy, Hernia Repair Genitourinary: No Pertinent History Musculoskeletal: No Pertinent History Female Surgical History: Section Other Surgical History: left and right cataract removed. Lumbar back surgery. - Social History Smoking Status: Never smoker Exposure to second hand smoke: No Alcohol Use: None Drug Use: none Patient Lives Alone: No Significant Family History: no pertinent family hx - Nursing Vital Signs Nursing Vital Signs: Initial Vital Signs Temperature 97.1 F 12/11/22 15:57 Pulse Rate 90 12/11/22 15:57 Respiratory Rate 18 12/11/22 15:57 Blood Pressure 149/76 12/11/22 15:57 O2 Sat by Pulse Oximetry 96 12/11/22 15:57 Pain Scale Pain Intensity 3 - Aleks Coma Score Best Eye Response (Aleks): (4) open spontaneously Best Verbal Response (Aleks): (5) oriented Best Motor Response (Aleks): (6) obeys commands Aleks Total: 15 - Physical Exam General Appearance: mild distress Head Injury: no evidence of injury Eye Exam: PERRL/EOMI, eyes nml inspection ENT Exam: airway nml, No evidence of ENT injury Neck Exam: supple, trachea midline Back Exam: normal inspection, normal range of motion Extremity Exam: other (Left wrist and hand there is subtle swelling of the wrist and pain with movement neurovascular tendon are is intact.) SpO2: 96 Procedures - Splinting Location of Splint: Left, Wrist Type of Splint: Velcro Splint Splint Applied By: ED Nurse Pre-Proc Neuro Vasc Exam: normal Post-Proc Neuro Vasc Exam: neurovascular intact - Course Nursing assessment & vital signs reviewed: Yes - Radiology Exams Left Wrist X-ray Interpretation: Interpreted by me, Negative Left Hand X-ray Interpretation: Interpreted by me, Negative Ordered Tests: Active Orders 24 hr Category Date Time Status Cold Application STAT Care 12/11/22 15:58 Active HAND (MINIMUM 3 VIEWS) Stat Exams 12/11/22 15:56 Taken WRIST (MIN 3 VIEWS) Stat Exams 12/11/22 15:56 Taken Medication Summary Discontinued Medications Generic Name Dose Route Start Last Admin Trade Name Cira PRN Reason Stop Dose Admin Hydrocodone Bitart/Acetaminophen Confirm 12/11/22 16:08 Hydrocodone/Apap 5/325 1 Tab Tablet Administered 12/11/22 16:09 Dose 1 tab .ROUTE .STK-MED ONE Hydrocodone Bitart/Acetaminophen 1 tab 12/11/22 16:23 12/11/22 16:27 Hydrocodone/Apap 5/325 1 Tab Tablet PO 12/11/22 16:24 1 tab STAT ONE Administration - Progress Progress: improved Progress Note: 12/11/22 17:45 Films showed 1 little suspicious area and we asked that telemetry rad read the films. Medical Desision Making - Diagnostic Testing Radiological Interpretation: Interpreted by me, Reviewed by me - Risk of complications The pt has a mod risk of morbidity or mortality based on: Need for prescription drug management - Departure Departure Disposition: Home Clinical Impression: Sprain of left wrist Condition: Stable Critical Care Time: No Referrals: CAROL KUMAR NP [Primary Care Provider] - Follow up/PCP as directed
[2022-12-11 17:01] VITALS: BP 121/67; PULSE 80
[2022-12-11 17:49] VITALS: O2SAT 96
--- NOTE | 2022-12-11 20:32 | XRAY ---
Indication: Status post fall. Comparison: None 3 view left wrist demonstrates nondepressed transverse cortical fracture distal metadiaphysis radius anteriorly with soft tissue swelling. No other bony, articular, or soft tissue abnormalities. Comment: Preliminary interpretation made by C. No critical discrepancy.
--- NOTE | 2022-12-11 20:34 | XRAY ---
Indication: Status post fall. Comparison: None 3 view left hand demonstrates ring base of 4th finger. No other bony, articular, or soft tissue abnormalities. Wrist reported separately.
[2022-12-12] MEDS ORDERED: NORCO 5/325 MG ONE (13:45)
== END 2022-12-11 18:11 | disposition home or self-care (01) ==
LOC: ED 15:43
DX: S63.502A Unspecified sprain of left wrist, initial encounter (principal); W19.XXXA Unspecified fall, initial encounter; Z79.899 Other long term (current) drug therapy
CPT/HCPCS: 73110; 73130; 99283; L3908; A9270-GY

== ENCOUNTER 2023-12-29 07:28 | Day surgery (SDC) | payer OTHER ==
[2023-12-29] MEDS ORDERED: Depo-Medrol 40 MG/ML IM ONE (07:29)
[2023-12-29] MEDS ORDERED: LIDOCAINE HCL 1% 50 MG/5 ML VL PF IJ ONE (07:29)
[2023-12-29] MEDS ORDERED: Sodium Chloride 0.9(Preservative Free) 10 ML IJ ONE (07:29)
[2023-12-29] MEDS ORDERED: DIPRIVAN 200 MG/20 ML IV ONE (09:34)
[2023-12-29] MEDS ORDERED: Lactated Ringers 1,000 ML IV ONE (09:38)
--- NOTE | 2023-12-29 10:33 | XRAY ---
Indication: Lumbar PAMELA. Intraoperative fluoroscopy provided for 16 seconds. 2 digital spot image submitted for interpretation demonstrates posterior needle tip projecting posterior to lumbosacral junction. Small amount of contrast injected for needle tip placement. Correlate with intraoperative findings/report.
--- NOTE | 2023-12-29 11:24 | XRAY ---
16 seconds of fluoroscopy was used in surgery for a lumbar PAMELA.
== END 2023-12-29 10:08 | disposition home or self-care (01) ==
LOC: SDC-PAIN 07:28
PROVIDERS: ATTEND Psychiatry & Neurology Pain Medicine
DX: M54.16 Radiculopathy, lumbar region (principal)
CPT/HCPCS: 62323; 72100; 77002; J1010; J2001; J2704; Q9966; J1030

== ENCOUNTER 2024-04-15 06:58 | Emergency (ER) | payer OTHER ==
[2024-04-15 07:43] VITALS: TEMP 96.7
[2024-04-15] MEDS ORDERED: BENADRYL 50 MG/ML ONE (07:51)
[2024-04-15] MEDS ORDERED: TORAdol 30 mg Injection ONE (07:51)
[2024-04-15] MEDS ORDERED: Sodium Chloride 0.9% 1000 ML 1,000 ML ONE (07:52)
[2024-04-15] MEDS: BENADRYL 50 MG/ML IV ONE (07:54)
[2024-04-15] MEDS: TORAdol 30 mg Injection IV ONE (07:57)
--- NOTE | 2024-04-15 07:59 | ERPHSYRPT ---
- History of Present Illness Time Seen by Provider: 04/15/24 07:10 Source: patient Exam Limitations: no limitations Patient Subjective Stated Complaint: Headache Triage Nursing Assessment: Patient brought into ED per w/c and transferred self to bed. Patient A+O X3. Patient's skin pink, Physician History: Patient is here with a headache. History of migraines. No falls or trauma. Patient is not on any blood thinners. Patient states that she started getting a migraine last night. Has progressed to today. Patient rates her headache as a 10 out of 10, frontal. Patient has no neurological symptoms. No red flag s ymptoms for headache today. No chest pain, shortness of breath, fever, chills. Allergies/Adverse Reactions: codeine [Codeine] Allergy (Verified 04/15/24 07:35) "feels funny" Home Medications: Calcium Carbonate [Calcium] 600 mg PO DAILY 12/31/16 [History] Escitalopram Oxalate [Lexapro] 20 mg PO DAILY 12/31/16 [History] Levothyroxine Sodium 75 Mcg [Synthroid 75 Mcg] 75 mcg PO DAILY 12/31/16 [History] Aspirin/Acetaminophen/Caffeine [Excedrin Migraine Caplet] 1 each PO DAILY 12/14/17 [History] Hx Tetanus, Diphtheria Vaccination/Date Given: Yes Hx Influenza Vaccination/Date Given: Yes Hx Pneumococcal Vaccination/Date Given: No Travel Risk - International Travel Have you traveled outside of the country in past 3 weeks: No - Emerging Infectious Disease Are you exhibiting symptoms associated with any current EIDs: No - Past Medical History Pertinent Past Medical History: Yes Neurological History: Migraines ENT History: Cataracts Cardiac History: No Pertinent History Respiratory History: No Pertinent History Endocrine Medical History: Other Musculoskeletal History: Osteoarthritis GI Medical History: Gallbladder Disease, Hernia History: No Pertinent History Psycho-Social History: Depression Female Reproductive Disorders: No Pertinent History Other Medical History: THYROID REMOVED. - Past Surgical History Past Surgical History: Yes Neuro Surgical History: No Pertinent History Cardiac: No Pertinent History Respiratory: No Pertinent History Gastrointestinal: Cholecystectomy, Hernia Repair Genitourinary: No Pertinent History Musculoskeletal: No Pertinent History Female Surgical History: Section Other Surgical History: left and right cataract removed. Lumbar back surgery. Significant Family History: no pertinent family hx - Social History Smoking Status: Never smoker Exposure to second hand smoke: No Alcohol Use: None Drug Use: none Patient Lives Alone: No - Social Determinants of Health Will the patient participate in the screening: Yes Do you worry about a steady place to live?: No Do you have any problems with any of the following?: No known problems In the past 12 months,have you had to go without utilities?: No Transportation Issues: No Has anyone in your support network made you feel unsafe?: No Have you or anyone in your house had to go without enough: No - Nursing Vital Signs Nursing Vital Signs: Initial Vital Signs Temperature 96.7 F 04/15/24 07:36 Pulse Rate 85 04/15/24 07:36 Respiratory Rate 20 04/15/24 07:36 Blood Pressure 132/80 04/15/24 07:36 O2 Sat by Pulse Oximetry 100 04/15/24 07:36 Pain Scale Pain Intensity 1 - Physical Exam SpO2: 100 Comments: 04/15/24 07:58 Review of Systems Constitutional: Negative for fever. HENT: Negative for congestion. Respiratory: Negative for shortness of breath. Cardiovascular: Negative for chest pain. Gastrointestinal: Negative for abdominal pain. Genitourinary: Negative for dysuria. Musculoskeletal: Negative for back pain. Skin: Negative for rash. Neurological: Frontal headache consistent with history of migraines Psychiatric/Behavioral: Negative for behavioral problems. All other systems reviewed and are negative. Physical Exam Vitals signs and nursing note reviewed. Constitutional: Appearance: Patient is well-developed. HENT: Head: Normocephalic and atraumatic. Eyes: Conjunctiva/sclera: Conjunctivae normal. Neck: Musculoskeletal: Normal range of motion. Trachea: No tracheal deviation. Cardiovascular: Rate and Rhythm: Normal rate. Pulmonary: Effort: Pulmonary effort is normal. No respiratory distress. Abdominal: Palpations: Abdomen is soft. Musculoskeletal: General: No deformity. Skin: General: Skin is warm and dry. Neurological/ Psychiatric: Mental Status: Mental status, behavior, interaction with environment is elizabeth ropriate for patient's age and condition Motor: There is no pronator drift of out-stretched arms. Muscle bulk and tone are normal. Strength is full bilaterally. Reflexes: Reflexes are 2+ and symmetric at the biceps, triceps, knees, and ankles. Plantar responses are flexor. Sensory: Light touch sense are intact in bilateral upper and lower extremities. There is no sign of neglect. Coordination: Rapid alternating movements are intact. There is no dysmetria on [id number] and [id number]. There are no abnormal or extraneous movements. Romberg is absent. 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 STAT Care 04/15/24 07:43 Active EKG-ER Only STAT Care 04/15/24 07:59 Active IV Insertion STAT Care 04/15/24 07:42 Active HEAD WITHOUT CONTRAST [CT] Stat Exams 04/15/24 07:43 Completed CBC W DIFF Stat Lab 04/15/24 07:55 Completed CMP Stat Lab 04/15/24 07:55 Completed Medication Summary Discontinued Medications Generic Name Dose Route Start Last Admin Trade Name Freq PRN Reason Stop Dose Admin Diphenhydramine HCl 25 mg 04/15/24 07:42 04/15/24 07:54 Diphenhydramine Hcl 50 Mg/Ml Vial IV 04/15/24 07:43 25 mg STAT ONE Administration Diphenhydramine HCl Confirm 04/15/24 07:51 Diphenhydramine Hcl 50 Mg/Ml Vial Administered 04/15/24 07:52 Dose 50 mg .ROUTE .STK-MED ONE Droperidol 1.25 mg 04/15/24 07:42 04/15/24 07:58 Droperidol 5 Mg/2 Ml Vial IV 04/15/24 07:43 1.25 mg STAT ONE Administration Droperidol Confirm 04/15/24 07:51 Droperidol 5 Mg/2 Ml Vial Administered 04/15/24 07:52 Dose 5 mg .ROUTE .STK-MED ONE Sodium Chloride 1,000 mls @ 999 mls/hr 04/15/24 07:42 04/15/24 09:20 Sodium Chloride 0.9% 1000 Ml IV 04/15/24 08:42 Infused .Q1H1M STA Infusion Sodium Chloride Confirm 04/15/24 07:52 Sodium Chloride 0.9% 1000 Ml Administered 04/15/24 07:53 Dose 1,000 mls @ ud .ROUTE .STK-MED ONE Ketorolac Tromethamine 30 mg 04/15/24 07:42 04/15/24 07:57 Ketorolac Tromethamine 30 Mg/Ml Inj IV 04/15/24 07:43 30 mg STAT ONE Administration Ketorolac Tromethamine Confirm 04/15/24 07:51 Ketorolac Tromethamine 30 Mg/Ml Inj Administered 04/15/24 07:52 Dose 30 mg .ROUTE .STK-MED ONE Lab/Rad Data: Laboratory Result Diagrams 04/15/24 07:55 04/15/24 07:55 Laboratory Results 04/15/24 04/15/24 Range/Units 07:55 07:55 WBC 13.1 H (3.98-10.04) x10^3/uL RBC 4.65 (3.93-5.22) x10^6/uL Hgb 13.8 (11.2-15.7) g/dL Hct 45.0 H (34.1-44.9) % MCV 96.8 H (79.4-94.8) fL MCH 29.7 (25.6-32.2) pg MCHC 30.7 L (32.2-35.5) g/dL RDW 13.7 (11.7-14.4) % Plt Count 309 (182-369) x10^3/uL MPV 9.5 (9.4-12.3) fL Gran % 73.3 H (34.0-71.1) % Immature Gran % (Auto) 0.5 H (0.001-0.429) % Nucleat RBC Rel Count 0.0 (0.00-0.2) % Eos # (Auto) 0.18 (0.04-0.36) x10^3/uL Immature Gran # (Auto) 0.07 H (0.001-0.031) x10^3u/L Absolute Lymphs (auto) 2.29 (1.18-3.74) x10^3/uL Absolute Monos (auto) 0.89 H (0.24-0.86) x10^3/uL Absolute Nucleated RBC 0.00 (0.00-0.012) x10^3u/L Lymphocytes % 17.5 L (19.3-51.7) % Monocytes % 6.8 (4.7-12.5) % Eosinophils % 1.4 (0.7-5.8) % Basophils % 0.5 (0.1-1.2) % Absolute Granulocytes 9.61 H (1.56-6.13) x10^3/uL Basophils # 0.06 (0.01-0.08) x10^3/uL Sodium 140 (135-145) mmol/L Potassium 4.3 (3.5-5.1) mmol/L Chloride 106 (98-107) mmol/L Carbon Dioxide 23 (22-30) mmol/L Anion Gap 15.3 H (5-15) MEQ/L BUN 18 H (7-17) mg/dL Creatinine 0.82 (0.52-1.04) mg/dL Estimated GFR 80.3 ML/MIN Glucose 105 (74-106) mg/dL Calcium 9.1 (8.4-10.2) mg/dL Total Bilirubin 0.40 (0.2-1.3) mg/dL AST 29 (14-36) U/L ALT 30 (0-35) U/L Alkaline Phosphatase 114 (38-126) U/L Serum Total Protein 7.4 (6.3-8.2) g/dL Albumin 4.3 (3.5-5.0) g/dL - Progress Progress: improved Progress Note: 04/15/24 07:59 Differential diagnosis includes head bleed, migraine, stroke, electrolyte abnormality. -Plan for head CT, basic labs, fluid, migraine cocktail, EKG 04/15/24 09:31 Patient feels improved with medication here. Repeat neurological exam remained normal. No signs of stroke. Head CT shows no acute abnormality. Given that she is improved with a 0 out of 10 headache, normal neurological exam, I do believe this to be her typical migraine. Plan for discharge home at this point in time. Close follow-up with PCP. Patient may return here sooner for any new or changing symptoms. Counseled pt/family regarding: lab results, diagnosis, need for follow-up, rad results - Departure Departure Disposition: Home Clinical Impression: Migraine Condition: Stable Critical Care Time: No Referrals: CAROL KUMAR NP [Primary Care Provider] - Follow up/PCP as directed Instructions: Headache, Adult (DC)
[2024-04-15] MEDS: Sodium Chloride 0.9% 1000 ML 1,000 ML IV STA (08:02)
[2024-04-15 08:05] LABS: Absolute Neutrophil Ct (ANC) 9.61 x10^3/uL (1.56-6.13); BASOPHIL % 0.5 % (0.1-1.2); Basophil (Absolute #) 0.06 x10^3/uL (0.01-0.08); Eosinophil % 1.4 % (0.7-5.8); Eosinophil (Absolute #) 0.18 x10^3/uL (0.04-0.36); Hemoglobin 13.8 g/dL (11.2-15.7); IMMATURE GRAN # 0.07 x10^3u/L (0.001-0.031); IMMATURE GRAN % 0.5 % (0.001-0.429); Lymphocyte (Absolute #) 2.29 x10^3/uL (1.18-3.74); Lymphocytes % 17.5 % (19.3-51.7); Mean Cell Volume 96.8 fL (79.4-94.8); Mean Corpuscular Hemoglobin 29.7 pg (25.6-32.2); Mean Corpuscular Hgb Concent. 30.7 g/dL (32.2-35.5); Mean Platelet Volume 9.5 fL (9.4-12.3); Monocyte (Absolute #) 0.89 x10^3/uL (0.24-0.86); Monocytes % 6.8 % (4.7-12.5); Neutrophil % 73.3 % (34.0-71.1); Platelet Count 309 x10^3/uL (182-369); Red Blood Count 4.65 x10^6/uL (3.93-5.22); Red Cell Distribution Width 13.7 % (11.7-14.4); White Blood Count 13.1 x10^3/uL (3.98-10.04)
[2024-04-15 08:18] LABS: ALBUMIN 4.3 g/dL (3.5-5.0); ANION GAP 15.3 MEQ/L (5-15); BILIRUBIN,TOTAL 0.4 mg/dL (0.2-1.3); Calcium 9.1 mg/dL (8.4-10.2); Creatinine 1 0.82 mg/dL (0.52-1.04); EST GLOMERULAR FILTRATION RATE 80.3 ML/MIN; Potassium 4.3 mmol/L (3.5-5.1); Total Protein 7.4 g/dL (6.3-8.2)
[2024-04-15 09:19] VITALS: BP 142/85
--- NOTE | 2024-04-15 09:19 | XRAY ---
CLINICAL HISTORY: headache COMPARISON: None. TECHNIQUE: Axial noncontrast CT scan of the brain was performed from the skull base to the high parietal region, sagittal and coronal reconstructed images were obtained. One of the following dose reduction techniques was utilized for this exam.Automated exposure control, adjustment of the mA and/or kV according to patient size, and use of iterative reconstruction. DLP : 964.10 mGy-cm. FINDINGS: The ventricular system, cortical sulci and basal cisterns are slightly prominent consistent with senile changes. The visualized brain parenchyma shows normal appearance. Lee-white matter differentiation is maintained. No midline shifts or deformity. No intracerebral or extra axial hematoma. Normal size and configuration of the cerebral ventricles. Normal CT appearance of the posterior fossa structures namely the cerebellar hemispheres, brainstem and cerebellar peduncles. The cerebello-pontine angles are clear. The pituitary gland, the pineal gland, the optic chiasm is unremarkable. The osseous structures in the skull base are unremarkable. No definite calvarium fractures. Fluid level is noted at the left maxillary sinus suggesting acute sinusitis. Clear rest scanned paranasal sinuses. IMPRESSION: 1. No acute intracranial abnormality was detected. If warranted, MRI with diffusion imaging is recommended to detect any evolving ischemic insult. 2. Mild senile changes. 3. Left maxillary fluid level, suggesting acute sinusitis. Electronically Signed by: Airam Montero MD. (04/15/2024 09:15:17 EDT)
[2024-04-15 09:26] VITALS: PULSE 82; RESP 18
[2024-04-15 09:32] VITALS: O2SAT 100
== END 2024-04-15 09:35 | disposition home or self-care (01) ==
LOC: ED 06:58
DX: G43.909 Migraine, unspecified, not intractable, without status migrainosus (principal); Z79.899 Other long term (current) drug therapy
CPT/HCPCS: 36000; 36415; 70450; 80053; 85025; 93005; 93041; 96360; 96374; 96375; 99284; J1200; J1885

== ENCOUNTER 2025-06-30 15:52 | Emergency (ER) | payer MEDICARE ==
--- NOTE | 2025-06-30 16:04 | ERPHSYRPT ---
- History of Present Illness Time Seen by Provider: 06/30/25 16:04 Source: patient Exam Limitations: no limitations Physician History: Patient presents with chest tightness and shortness of breath worsening over the last 2 days. Chest tightness is substernal without radiation. Patient does appear to be anxious. She has had recent swelling and is taking Lasix for. No previous history of chest pain. She does have a family history of heart failure but has never had any issues prior. She denies any nausea, vomiting or abdominal pain. Activities at Onset: none Severity of Dyspnea-Max: moderate Severity of Dyspnea-Current: moderate Possible Cause: no prior episodes Modifying Factors: Improves With: nothing Associated Symptoms: constant, anxiety, chest pain/discomfort, No cough Allergies/Adverse Reactions: codeine Adverse Reaction (Verified 06/30/25 16:18) "out of body experience" - Review of Systems All Other Systems: Reviewed and Negative - Nursing Vital Signs Nursing Vital Signs: Initial Vital Signs Temperature 97.7 F 06/30/25 15:54 Pulse Rate 89 06/30/25 15:54 Respiratory Rate 16 06/30/25 15:54 Blood Pressure 142/77 06/30/25 15:54 O2 Sat by Pulse Oximetry 99 06/30/25 15:54 Pain Scale Pain Intensity 9 - Physical Exam General Appearance: no apparent distress Respiratory Exam: normal breath sounds, lungs clear, airway intact, No respiratory distress Cardiovascular/Chest Exam: normal heart sounds, regular rate/rhythm Abdominal/Gastrointestinal Exam: soft, No tenderness Extremity Exam: No pedal edema, No swelling Neurologic Exam: alert, oriented x 3, cooperative Skin Exam: normal color, warm, dry, No rash SpO2 Interpretation: normal O2 Delivery: Room Air - Course Nursing assessment & vital signs reviewed: Yes EKG Interpreted by Me: RATE (90), Sinus Rhythm, NORMAL AXIS, NORMAL INTERVALS, NORMAL QRS, NORMAL ST-T Ordered Tests: Active Orders 24 hr Category Date Time Status EKG-ER Only STAT Care 06/30/25 16:04 Active IV Insertion STAT Care 06/30/25 16:04 Active CHEST 1 VIEW (PORTABLE) Stat Exams 06/30/25 16:14 Completed CHEST WITH CONTRAST [CT] Stat Exams 06/30/25 17:19 Completed CBC W DIFF Stat Lab 06/30/25 16:11 Completed CMP Stat Lab 06/30/25 16:11 Completed D-DIMER QUANTITATIVE Stat Lab 06/30/25 16:11 Completed Lactic Acid Stat Lab 06/30/25 16:06 Completed MAGNESIUM Stat Lab 06/30/25 16:11 Completed NT PRO BNPII Stat Lab 06/30/25 16:11 Completed TROPONIN Q2H Lab 06/30/25 16:11 Completed TROPONIN Q2H Lab 06/30/25 18:15 Ordered TROPONIN Q2H Lab 06/30/25 20:15 Ordered TROPONIN Q2H Lab 06/30/25 22:15 Ordered VENOUS BLOOD GAS Stat Lab 06/30/25 16:06 Completed Incentive Spirometry STAT RT 06/30/25 18:04 Active Medication Summary Discontinued Medications Generic Name Dose Route Start Last Admin Trade Name Freq PRN Reason Stop Dose Admin Aspirin 324 mg 06/30/25 16:05 06/30/25 16:27 Aspirin 81 Mg Tab.Chew PO 06/30/25 16:06 324 mg STAT ONE Administration Aspirin Confirm 06/30/25 16:24 Aspirin 81 Mg Tab.Chew Administered 06/30/25 16:25 Dose 324 mg .ROUTE .STK-MED ONE Sodium Chloride 1,000 mls @ 999 mls/hr 06/30/25 16:38 06/30/25 17:59 Sodium Chloride 0.9% 1000 Ml IV 06/30/25 17:38 999 mls/hr .Q1H1M STA Administration Sodium Chloride Confirm 06/30/25 17:57 Sodium Chloride 0.9% 1000 Ml Administered 06/30/25 17:58 Dose 1,000 mls @ ud .ROUTE .STK-MED ONE Lorazepam 1 mg 06/30/25 16:04 06/30/25 16:35 Lorazepam 2 Mg/1 Ml 2 Mg Vial IV 06/30/25 16:05 1 mg STAT ONE Administration Lorazepam Confirm 06/30/25 16:25 Lorazepam 20 Mg/10 Ml Mdv 2 Mg/Ml For Single Doses Administered 06/30/25 16:26 Dose 20 mg .ROUTE .STK-MED ONE Lab/Rad Data: Laboratory Result Diagrams 06/30/25 16:11 06/30/25 16:11 Laboratory Results 06/30/25 06/30/25 06/30/25 Range/Units 16:11 16:11 16:11 WBC (3.98-10.04) x10^3/uL RBC (3.93-5.22) x10^6/uL Hgb (11.2-15.7) g/dL Hct (34.1-44.9) % MCV (79.4-94.8) fL MCH (25.6-32.2) pg MCHC (32.2-35.5) g/dL RDW (11.7-14.4) % Plt Count (182-369) x10^3/uL MPV (9.4-12.3) fL Gran % (34.0-71.1) % Immature Gran % (Auto) (0.001-0.429) % Nucleat RBC Rel Count (0.00-0.2) % Eos # (Auto) (0.04-0.36) x10^3/uL Immature Gran # (Auto) (0.001-0.031) x10^3u/L Absolute Lymphs (auto) (1.18-3.74) x10^3/uL Absolute Monos (auto) (0.24-0.86) x10^3/uL Absolute Nucleated RBC (0.00-0.012) x10^3u/L Lymphocytes % (19.3-51.7) % Monocytes % (4.7-12.5) % Eosinophils % (0.7-5.8) % Basophils % (0.1-1.2) % Absolute Granulocytes (1.56-6.13) x10^3/uL Basophils # (0.01-0.08) x10^3/uL D-Dimer 0.73 H* (0.0-0.50) mg/L pO2/FiO2 Ratio % VBG pH (7.32-7.42) VBG pCO2 at Pat Temp (42-55) mm/Hg VBG pO2 at Pat Temp (25-40) mm/Hg VBG HCO3 (22-28) meq/L VBG O2 Sat (Robert) (95-100) VBG Base Excess (-2.0-2.0) VBG Hemoglobin VBG Carboxyhemoglobin (0.0-6.9) % T HGB POC Potassium (3.5-5.1) Sodium 140 (135-145) mmol/L Potassium 4.1 (3.5-5.1) mmol/L Chloride 107 (98-107) mmol/L Carbon Dioxide 25 (22-30) mmol/L Anion Gap 12.9 (5-15) MEQ/L BUN 25 H (7-17) mg/dL Creatinine 1.22 H (0.52-1.04) mg/dL Estimated GFR 49.3 ML/MIN Glucose 94 (74-106) mg/dL Lactic Acid (0.4-2.0) Calcium 9.2 (8.4-10.2) mg/dL Magnesium 1.9 (1.6-2.3) mg/dL Total Bilirubin 0.30 (0.2-1.3) mg/dL AST 36 (14-36) U/L ALT 34 (0-35) U/L Alkaline Phosphatase 121 (38-126) U/L Troponin I < 0.012 (0.000-0.033) ng/mL NT-Pro-B Natriuret Pep 90.5 (<300) pg/mL Serum Total Protein 7.1 (6.3-8.2) g/dL Albumin 4.2 (3.5-5.0) g/dL Influenza Type A Ag (NEGATIVE) Influenza Type B Ag (NEGATIVE) RSV (PCR) (NEGATIVE) SARS-CoV-2 (PCR) (NEGATIVE) 06/30/25 06/30/25 06/30/25 Range/Units 16:11 16:10 16:06 WBC 8.5 (3.98-10.04) x10^3/uL RBC 4.62 (3.93-5.22) x10^6/uL Hgb 13.6 (11.2-15.7) g/dL Hct 42.9 (34.1-44.9) % MCV 92.9 (79.4-94.8) fL MCH 29.4 (25.6-32.2) pg MCHC 31.7 L (32.2-35.5) g/dL RDW 13.2 (11.7-14.4) % Plt Count 285 (182-369) x10^3/uL MPV 9.9 (9.4-12.3) fL Gran % 61.2 (34.0-71.1) % Immature Gran % (Auto) 0.4 (0.001-0.429) % Nucleat RBC Rel Count 0.0 (0.00-0.2) % Eos # (Auto) 0.17 (0.04-0.36) x10^3/uL Immature Gran # (Auto) 0.03 (0.001-0.031) x10^3u/L Absolute Lymphs (auto) 2.36 (1.18-3.74) x10^3/uL Absolute Monos (auto) 0.68 (0.24-0.86) x10^3/uL Absolute Nucleated RBC 0.00 (0.00-0.012) x10^3u/L Lymphocytes % 27.8 (19.3-51.7) % Monocytes % 8.0 (4.7-12.5) % Eosinophils % 2.0 (0.7-5.8) % Basophils % 0.6 (0.1-1.2) % Absolute Granulocytes 5.19 (1.56-6.13) x10^3/uL Basophils # 0.05 (0.01-0.08) x10^3/uL D-Dimer (0.0-0.50) mg/L pO2/FiO2 Ratio 21.0 % VBG pH 7.46 H (7.32-7.42) VBG pCO2 at Pat Temp 37 L (42-55) mm/Hg VBG pO2 at Pat Temp 34 (25-40) mm/Hg VBG HCO3 26.3 (22-28) meq/L VBG O2 Sat (Robert) 56.4 L (95-100) VBG Base Excess 2.5 H (-2.0-2.0) VBG Hemoglobin 14.0 VBG Carboxyhemoglobin 2.9 (0.0-6.9) % T HGB POC Potassium 4.0 (3.5-5.1) Sodium (135-145) mmol/L Potassium (3.5-5.1) mmol/L Chloride (98-107) mmol/L Carbon Dioxide (22-30) mmol/L Anion Gap (5-15) MEQ/L BUN (7-17) mg/dL Creatinine (0.52-1.04) mg/dL Estimated GFR ML/MIN Glucose (74-106) mg/dL Lactic Acid 1.6 (0.4-2.0) Calcium (8.4-10.2) mg/dL Magnesium (1.6-2.3) mg/dL Total Bilirubin (0.2-1.3) mg/dL AST (14-36) U/L ALT (0-35) U/L Alkaline Phosphatase (38-126) U/L Troponin I (0.000-0.033) ng/mL NT-Pro-B Natriuret Pep (<300) pg/mL Serum Total Protein (6.3-8.2) g/dL Albumin (3.5-5.0) g/dL Influenza Type A Ag NEGATIVE (NEGATIVE) Influenza Type B Ag NEGATIVE (NEGATIVE) RSV (PCR) NEGATIVE (NEGATIVE) SARS-CoV-2 (PCR) NEGATIVE (NEGATIVE) - Progress Progress: improved Air Movement: good Progress Note: This patient presents with dyspnea. Rule out acute cardiac etiologies to include ACS, CHF, pericardial effusion / tamponade . Rule out acute respiratory etiologies to include acute PE, pneumothorax , asthma, COPD exacerbation, allergic etiologies, or infectious etiologies such as PNA. Plan: CXR, labs, troponin, close hemodynamic monitoring, serial reassessment 06/30/25 18:13 cr mildly elevated at 1.2, 1L NS bolus given. D dimer elevated, CTA chest shows no PE, multiple pulmonary nodule less than 5mm, f/u imaging in 1 year, b/l basal atelectasis. EKG unremarkable Troponin neg Remainder of labs unremarkable Patient given incentive spirometer to help with atelectasis. Recommend f/u with cardio for stress test and stress echo, f/u with pulm for eval and PFT Return to ER if chest tightness or sob return. Blood Culture(s) Obtained: No Antibiotics given: No Counseled pt/family regarding: lab results, diagnosis, need for follow-up, rad results Medical Desision Making - Diagnostic Testing Diagnostic test were ordered, analyzed, and reviewed by me: Yes Radiological Interpretation: Interpreted by me, Reviewed by me, Teleradiologist Report - Risk of complications Low Risk: Low risk of morbidity from additional dx testing or treatment - Departure Departure Disposition: Home Clinical Impression: Dyspnea, Multiple lung nodules on CT, Atelectasis of both lungs, ROLDAN (acute kidney injury) Condition: Stable Critical Care Time: No Referrals: GIANA ANTUNEZ NP [Primary Care Provider, [facility]] - Follow up/PCP as directed Instructions: Shortness of breath in adults - ED discharge instructions
[2025-06-30 16:11] VITALS: TEMP 97.7
[2025-06-30 16:12] LABS: BASOPHIL % 0.6 % (0.1-1.2); Basophil (Absolute #) 0.05 x10^3/uL (0.01-0.08); Eosinophil (Absolute #) 0.17 x10^3/uL (0.04-0.36); Hematocrit 42.9 % (34.1-44.9); Hemoglobin 13.6 g/dL (11.2-15.7); IMMATURE GRAN # 0.03 x10^3u/L (0.001-0.031); IMMATURE GRAN % 0.4 % (0.001-0.429); Lymphocyte (Absolute #) 2.36 x10^3/uL (1.18-3.74); Mean Corpuscular Hemoglobin 29.4 pg (25.6-32.2); Mean Corpuscular Hgb Concent. 31.7 g/dL (32.2-35.5); Monocyte (Absolute #) 0.68 x10^3/uL (0.24-0.86); NUCLEATED RBC # 0.00 x10^3u/L (0.00-0.012); NUCLEATED RBC % 0.0 % (0.00-0.2); Platelet Count 285 x10^3/uL (182-369); Red Blood Count 4.62 x10^6/uL (3.93-5.22); White Blood Count 8.5 x10^3/uL (3.98-10.04)
[2025-06-30 16:13] LABS: VBG BASE EXCESS 2.5 (-2.0-2.0); VBG CARBOXYHEMOGLOBIN 2.9 % T HGB (0.0-6.9); VBG FIO2 21.0 %; VBG HCO3- 26.3 meq/L (22-28); VBG HEMOGLOBIN 14.0; VBG O2 SATURATION 56.4 (95-100); VBG PCO2 37.0 mm/Hg (42-55); VBG PO2 34.0 mm/Hg (25-40); VBG POTASSIUM 4.0 (3.5-5.1)
[2025-06-30] MEDS ORDERED: BABY ASPIRIN 81 MG CHEW ONE (16:24)
[2025-06-30 16:25] LABS: Calcium 9.2 mg/dL (8.4-10.2); Carbon Dioxide 25.0 mmol/L (22-30); Creatinine 1 1.22 mg/dL (0.52-1.04); EST GLOMERULAR FILTRATION RATE 49.3 ML/MIN; Glucose 94.0 mg/dL (74-106); Potassium 4.1 mmol/L (3.5-5.1); SGOT/AST 36.0 U/L (14-36); SGPT/ALT 34.0 U/L (0-35); Total Protein 7.1 g/dL (6.3-8.2)
[2025-06-30] MEDS ORDERED: ATIVAN 2 MG/ML MDV FOR SINGLE DOSES ONE (16:25)
[2025-06-30] MEDS: BABY ASPIRIN 81 MG CHEW PO ONE (16:27)
[2025-06-30] MEDS: Ativan 2 MG/1 ML VIAL IV ONE (16:35)
[2025-06-30 16:36] LABS: NT PRO BNPII 90.5 pg/mL (<300); TROPONIN < 0.012 ng/mL (0.000-0.033)
[2025-06-30 16:52] LABS: INFLUENZA A NEGATIVE (NEGATIVE); INFLUENZA B NEGATIVE (NEGATIVE); RESPIRATORY SYNCTIAL VIRUS NEGATIVE (NEGATIVE); SARS-CoV-2 Xpert Express NEGATIVE (NEGATIVE)
--- NOTE | 2025-06-30 16:55 | XRAY ---
CLINICAL HISTORY: sob COMPARISON: No prior studies are available for comparison. TECHNIQUE: An X-ray image of the chest was obtained in the AP projection. FINDINGS: Pulmonary Parenchyma: There is thin linear atelectasis in the right lower lung zone. There is no evidence of consolidation, collapse, or focal opacities. No pulmonary nodules are identified. There is no evidence of pleural effusion or pleural thickening. Heart and Mediastinum: The heart size and shape are normal. There is no mediastinal widening or masses. No hilar or mediastinal lymphadenopathy is identified. Bony Thorax: The bony thorax appears intact without fractures or deformities. Soft Tissues: The soft tissues overlying the chest wall are unremarkable. IMPRESSION: 1. No acute cardiopulmonary abnormalities are identified. 2. Thin linear atelectasis in the right lower lung zone. Electronically Signed by: Paulino Way MD. (06/30/2025 16:53:36 EDT)
--- NOTE | 2025-06-30 17:57 | XRAY ---
CLINICAL HISTORY: chest pain, sob COMPARISON: Chest x-ray. 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 TECHNIQUE: Contiguous 3.[address] angiographic images of the chest were acquired with the administration of intravenous contrast. Coronal and sagittal reconstructions were obtained. 80 cc of Isovue 370 IV contrast was administered for post-contrast images. One of these 3D techniques was utilized: Maximum Intensity Pixel (MIP), 3D Reconstructed Images, Volume Rendered Images, Surface Shaded Rendering. One of the following dose reduction techniques was utilized for this exam: Automated exposure control, adjustment of the mA and/or kV according to patient size, and use of iterative reconstruction. CTDI: 47.2 mGy. DLP: 730.3 mGy-cm. FINDINGS: Aorta: The thoracic aorta is normal in caliber. There is no evidence of aneurysm, dissection, or significant atherosclerotic changes. The aortic arch and descending thoracic aorta are unremarkable. Pulmonary Arteries: The pulmonary arteries are normal in size and opacification. There is no evidence of pulmonary embolism. There is no stenosis or filling defect. Superior Vena Cava (SVC) and Inferior Vena Cava (IVC): There is normal opacification and caliber. There is no evidence of thrombus or obstruction. Coronary Arteries: The coronary arteries are well opacified. There is no significant stenosis or atherosclerotic changes. Mediastinum: There are small bilateral hilar calcified lymph nodes. Heart: The heart is normal in size and morphology. There is no pericardial effusion. Lungs: There are bilateral basal atelectatic bands. A 5 mm perifissural nodule is seen in the right middle lung lobe (Series 2 image 110). A 4 mm solid nodule is seen in the lateral right lower lung lobe (Series 2 image 93). Otherwise, the lungs are clear with no evidence of consolidation, nodules, or masses. There is no pleural effusion or thickening. Bones: There are no fractures or lytic/sclerotic lesions of the visualized bony structures. There is normal alignment and bone density. Soft Tissues: The visualized soft tissues appear normal. There are no abnormal masses or fluid collections. Upper abdominal cuts show fatty liver and cholecystectomy clips. IMPRESSION: 1. The study is negative for pulmonary embolism. 2. There are a few pulmonary nodules measuring 5 mm and less as described above. According to Fleischner Society guidelines, no need for follow-up is indicated in low-risk patients; in high-risk patients, 12-month follow-up is advised. 3. Bilateral basal atelectatic bands. Electronically Signed by: Paulino Way MD. (06/30/2025 17:55:04 EDT)
[2025-06-30 18:57] VITALS: BP 129/64; PULSE 90; RESP 9; O2SAT 98
== END 2025-06-30 19:06 | disposition home or self-care (01) ==
LOC: ED 15:52 → MERGE 15:52 → ED 19:06
DX: R06.00 Dyspnea, unspecified (principal); R91.8 Other nonspecific abnormal finding of lung field; J98.11 Atelectasis; N17.9 Acute kidney failure, unspecified; R07.9 Chest pain, unspecified